=== PATIENT | female | born 1940 | race Caucasian/White ===

== ENCOUNTER 2018-03-30 11:23 | Emergency (ER) | payer OTHER ==
[~2018-03-30] VITALS: Wt 70.9 kg
[2018-03-30 11:25] VITALS: BP 171/79; PULSE 90; RESP 18
--- NOTE | 2018-03-30 12:52 | ERD ---
ER Documentation Chief Complaint Chief Complaint REFILL OF MEDS,CLONAZEPAM,ENALAPRIL HPI 77-year-old female, with history of hypertension, anxiety and insomnia, currently on enalapril and clonazepam 1 mg nightly, presents the emergency department requesting a refill for her medications because her primary doctor is on vacation. Otherwise no symptoms or complaints at this time. ROS All systems reviewed and are negative except as per history of present illness. Medications Home Meds Active Scripts Clonazepam* (Clonazepam*) 1 Mg Tablet, 1 MG PO DAILY PRN for ANXIETY for 5 Days, #5 TAB Prov:TIA SALINAS MD 03/30/18 Enalapril Maleate* (Enalapril Maleate*) 10 Mg Tablet, 10 MG PO TID, #30 TAB Prov:TIA SALINAS MD 03/30/18 PMhx/Soc Medical and Surgical Hx: pt denies Surgical Hx Hx Cardiac Disorders: Yes (HTN) Hx Miscellaneous Medical Probl: Yes (back & left leg pain ) Hx Alcohol Use: Yes (occ) Hx Substance Use: No Hx Tobacco Use: No (quit 10 yrs ago) Smoking Status: Former smoker Physical Exam Vitals Vital Signs Date Temp Pulse Resp B/P (MAP) Pulse Ox O2 O2 Flow FiO2 Time Delivery Rate 03/30/18 98.1 90 18 171/79 99 11:25 (109) Physical Exam Const: No acute distress Head: Atraumatic Eyes: Normal Conjunctiva ENT: Normal External Ears, Nose and Mouth. Neck: Full range of motion. No meningismus. Resp: Clear to auscultation bilaterally Cardio: Regular rate and rhythm, no murmurs Abd: Soft, non tender, non distended. Normal bowel sounds Skin: No petechiae or rashes Back: No midline or flank tenderness Ext: No cyanosis, or edema Neur: Awake and alert Psych: Normal Mood and Affect Procedures/MDM Vital signs stable. Differential diagnosis considered include uncontrolled hypertension, hypertensive crisis, hypertensive urgency, hypertensive emergency. Low suspicion for acute end organ damage. During the ED course the patient remained stable, no new complaints. CURES system reviewed, no evidence of suspicious activity. Results and clinical impression discussed with the patient who agrees with management. The patient is stable to be treated outpatient and will be discharged home; some side effects of prescribed medications (headache, rash, nausea, vomiting, diarrhea, drowsiness, habituation, bleeding, hypertension, interactions with other medications) were reviewed. Follow up with the primary care provider in the next 48h has been recommended. If symptoms persist, worsen or new symptoms develop, then patient should return to the ED immediately. Instructions explained and given directly by me to the patient with acknowledgment and demonstrated understanding. Disclaimer: Inadvertent spelling and grammatical errors are likely due to EHR/dictation software use and do not reflect on the overall quality of patient care. Also, please note that the electronic time recorded on this note does not necessarily reflect the actual time of the patient encounter. Departure Diagnosis: Primary Impression: Encounter for medication refill Condition: Stable Additional Instructions: Muchas triny por [facility] para capellan servicio. Esperamos que en [place] visita a la angelito de emergencia cap[place] problema medico haya sido solucionado y que se sienta mucho mejor. Para estar seguros que cap[place]an mejoria sigue en proceso, le pedimos el favor de hacer deric maria elena de seguimiento medico con [place] doctor primario en los proximos 2-4 meehan. Lleve con usted estos documentos y las medicinas recetadas. Si christin sintomas empeoran, NO SE ESPERE, por favor regrese a angelito de emergencia INMEDIATAMENTE. En julio que usted no tenga un mdico de atencin primaria: Llame al mdico o clnica comunitaria de referencia que aparece abajo roxann las horas de consultorio para hacer deric maria elena para que le vean. CLINICAS: [facility] [phone] [facility] [phone] [facility] [phone] [place] [id number] [phone] [place] [phone] [facility]. [phone] TIA ANTONIO MD Mar 30, 2018 12:52
[2018-03-30] MEDS ORDERED: ENAL10TA PO (12:55)
[2018-03-30] MEDS ORDERED: CLON1TAB13 PO (12:55)
== END 2018-03-30 13:25 | disposition home or self-care (01) ==
LOC: FTE 11:23
DX: Z76.0 Encounter for issue of repeat prescription (principal); I10 Essential (primary) hypertension; Z87.891 Personal history of nicotine dependence
CPT/HCPCS: 99281